=== PATIENT | female | born 1965 | race Two or more races ===

== ENCOUNTER 2021-11-02 12:17 | Emergency (ER) | payer BC ==
[~2021-11-02] VITALS: Ht 154.9 cm; Wt 92.5 kg
[2021-11-02] MEDS ORDERED: ZESTRIL10 M1 PO (12:46)
[2021-11-02] MEDS ORDERED: ESCITALOPRA5 MG/5 ML PO (12:47)
== END 2021-11-02 14:01 | disposition home or self-care (01) ==
LOC: ER 12:17
DX: I10 Essential (primary) hypertension (principal); R51.9 Headache, unspecified